=== PATIENT | female | born 1985 | race African-American/Black ===

== ENCOUNTER 2017-09-04 19:54 | Inpatient (IN) ==
[2017-09-04] MEDS ORDERED: ONDANSETRON 4 MG/2 ML VIAL IV STA (20:38)
[2017-09-04] MEDS ORDERED: SODIUM CHLORIDE 0.9% 500 ML IV STA (20:38)
[2017-09-04] MEDS ORDERED: HYDROmorphone 2 MG/1 ML VIAL IV STA (20:38)
[2017-09-04] MEDS ORDERED: CEFTAROLINE 600 MG in SODIUM CHLORIDE 0.9% 100 ML IV STA (20:38)
[2017-09-04 20:48] LABS: Basophils # 0.1 10*3/uL (0.0-0.2); Basophils % 0.6 % (0.0-0.8); Eosinophils # 0.4 10*3/uL (0.0-0.87); Eosinophils % 3.6 % (0.00-10.9); Hematocrit 38.7 VOL% (35.7-47.0); Hemoglobin 12.9 GM/DL (12.0-16.0); Immature Granulocytes % 0.2 %; Immature Granulocytes Absolute 0.02 #; Lymphocytes # 2.6 10*3/uL (1.4-4.0); Lymphocytes % 26.9 % (21.3-54.2); Mean Corpuscular HGB Conc 33.3 GM/DL (32-36); Mean Corpuscular Hemoglobin 28 PG (27-34); Mean Corpuscular Volume 83.8 FL (87-102); Mean Platelet Volume 9.1 FL (9.6-12.0); Monocytes # 1.1 10*3/uL (0.11-0.8); Monocytes % 10.8 % (1.7-12.7); Neutrophils # 5.7 10*3/uL (1.4-7.4); Neutrophils % 57.9 % (38.7-73.9); Platelet Count 269 T/CUMM (130-400); Red Blood Count 4.62 MC/CUMM (3.8-5.5); Red Cell Distribution Width 13.2 % (9.3-17.3); White Blood Count 9.8 T/CUMM (4-12)
[2017-09-04 21:12] LABS: Calcium 8.4 MG/DL (8.5-10.1); Osmolality,Calculated 276.5 MOS/KG (273-304); Potassium 3.8 MMOL/L (3.5-5.1)
[2017-09-04] MEDS ORDERED: HYDROmorphone 2 MG/1 ML VIAL ONE (21:13)
[2017-09-04] MEDS ORDERED: CEFTAROLINE 600 MG VIAL IV ONE (21:13)
[2017-09-04] MEDS ORDERED: ONDANSETRON 4 MG/2 ML VIAL ONE (21:13)
[2017-09-04] MEDS ORDERED: ONDANSETRON 4 MG/2 ML VIAL IV PRN (23:49)
[2017-09-04] MEDS ORDERED: ACETAMINOPHEN 325 MG TABLET PO PRN (23:49)
[2017-09-04] MEDS ORDERED: HYDROmorphone 2 MG/1 ML VIAL IV PRN (23:49)
[2017-09-04] MEDS ORDERED: ALBUTEROL/IPRATROPIUM 3 ML NEB RESP TX PRN (23:49)
[2017-09-05] MEDS: SODIUM CHLORIDE 0.9% 1,000 ML IV SCH ×3 (00:15→17:35)
[2017-09-05 05:30] LABS: Basophils # 0.1 10*3/uL (0.0-0.2); Basophils % 0.5 % (0.0-0.8); Eosinophils # 0.1 10*3/uL (0.0-0.87); Eosinophils % 0.8 % (0.00-10.9); Hematocrit 36.1 VOL% (35.7-47.0); Hemoglobin 11.9 GM/DL (12.0-16.0); Immature Granulocytes % 0.4 %; Immature Granulocytes Absolute 0.04 #; Lymphocytes # 1.5 10*3/uL (1.4-4.0); Mean Corpuscular Hemoglobin 28 PG (27-34); Mean Corpuscular Volume 84.3 FL (87-102); Mean Platelet Volume 9.3 FL (9.6-12.0); Monocytes # 0.8 10*3/uL (0.11-0.8); Monocytes % 7.8 % (1.7-12.7); Neutrophils # 7.7 10*3/uL (1.4-7.4); Neutrophils % 75.5 % (38.7-73.9); Platelet Count 254 T/CUMM (130-400); Red Blood Count 4.28 MC/CUMM (3.8-5.5); Red Cell Distribution Width 13.2 % (9.3-17.3); White Blood Count 10.1 T/CUMM (4-12)
[2017-09-05 06:04] LABS: Albumin 2.9 G/DL (3.4-5.0); Bilirubin,Total 0.6 MG/DL (0.2-1.0); Magnesium 2.1 MG/DL (1.8-2.4); Osmolality,Calculated 275.5 MOS/KG (273-304); Potassium 4.5 MMOL/L (3.5-5.1); Total Protein 6.6 G/DL (6.4-8.3)
[2017-09-05] MEDS: PANTOPRAZOLE 40 MG VIAL IV SCH (08:57)
[2017-09-05] MEDS: CEFTAROLINE 600 MG in SODIUM CHLORIDE 0.9% 50 ML IV SCH ×2 (09:03→22:59)
[2017-09-05] MEDS ORDERED: fentaNYL 100 MCG/2 ML VIAL ONE (13:46)
[2017-09-05] MEDS ORDERED: SEVOFLURANE 1 UNIT/15 MINUTE INH ONE (13:46)
[2017-09-05] MEDS ORDERED: PROPOFOL 200 MG/20 ML VIAL IV ONE (13:46)
[2017-09-05] MEDS ORDERED: MIDAZOLAM 2 MG/2 ML VIAL ONE (13:47)
[2017-09-05] MEDS ORDERED: ONDANSETRON 4 MG/2 ML VIAL ONE (13:47)
[2017-09-05] MEDS ORDERED: ONDANSETRON 4 MG/2 ML VIAL IV PRN (13:56)
[2017-09-05] MEDS ORDERED: HYDROmorphone 2 MG/1 ML VIAL IV PRN (13:56)
[2017-09-06 06:42] LABS: Basophils % 0.6 % (0.0-0.8); Eosinophils # 0.2 10*3/uL (0.0-0.87); Eosinophils % 3.6 % (0.00-10.9); Hematocrit 36.1 VOL% (35.7-47.0); Hemoglobin 11.8 GM/DL (12.0-16.0); Immature Granulocytes % 0.3 %; Immature Granulocytes Absolute 0.02 #; Lymphocytes # 1.8 10*3/uL (1.4-4.0); Lymphocytes % 26.6 % (21.3-54.2); Mean Corpuscular HGB Conc 32.7 GM/DL (32-36); Mean Corpuscular Hemoglobin 28 PG (27-34); Mean Corpuscular Volume 84.1 FL (87-102); Monocytes # 0.7 10*3/uL (0.11-0.8); Monocytes % 10.6 % (1.7-12.7); Neutrophils # 3.9 10*3/uL (1.4-7.4); Neutrophils % 58.3 % (38.7-73.9); Platelet Count 233 T/CUMM (130-400); Red Blood Count 4.29 MC/CUMM (3.8-5.5); Red Cell Distribution Width 13.2 % (9.3-17.3); White Blood Count 6.7 T/CUMM (4-12)
[2017-09-06] MEDS: SODIUM CHLORIDE 0.9% 1,000 ML IV SCH (06:57)
[2017-09-06] MEDS: PANTOPRAZOLE 40 MG VIAL IV SCH (08:58)
[2017-09-06] MEDS: CEFTAROLINE 600 MG in SODIUM CHLORIDE 0.9% 50 ML IV SCH (08:59)
[2017-09-06 11:03] VITALS: BP 115/63
== END 2017-09-06 13:13 | disposition home or self-care (01) | DRG 264 ==
LOC: N.ED 19:54 → N.EDINP 21:30 → N.5E 23:15
PROVIDERS: ADMIT Surgery; ATTEND Surgery